=== PATIENT | male | born 1995 | race Caucasian/White ===

== ENCOUNTER 2021-12-15 12:15 | Emergency (ER) | payer BC, SELFPAY ==
[2021-12-15 12:23] VITALS: BP 110/72; PULSE 67; RESP 14; TEMP 36.3; O2SAT 96
--- NOTE | 2021-12-15 13:03 | W.ED.GENAD ---
Discharge Plan Disposition Patient Disposition: HOME Condition: Stable Discharge Details Clinical Impression: Post-op bleeding Primary Care Provider: [place],Local ED Provider: Latrell Denise Home Meds and New Rx's Prescriptions: No Action minoxidil [Hair Regrowth Treatment] 180 ML solution 1 ml Topical BID Qty: 180 3RF Label Comments: not using Rx Instructions: apply 1 ml to scalp BID finasteride 1 mg Tablet 1 mg PO DAILY Discharge Instructions Instructions: Postoperative Bleeding (ED) Additional Instructions: It is recommended that you have minimal activity today and just take sips of water for the next 6 to 8 hours. Bleeding then stops at that point you may resume normal recommendations from your dental provider. If you have any significant worsening of symptoms, hemorrhage, pain, fever or chills return immediately to the emergency department for reassessment Please follow-up with your dental provider on Friday for reassessment and any further recommendations as needed. Medical Decision Making Patient presenting to the emergency department for chief complaint of bleeding from dental extraction that occurred 3 days ago. He does state yesterday he had a significant increase of activity and after activity bleeding had started. Patient denies any severe pain or discomfort but she has chronic continued oozing at this point that has improved. Physical exam shows bleeding noted around postop site of tooth #16. Does not appear consistent with dry socket. Patient does not have significant pain, and no signs of infection. Gave patient reassurance and encouraged just sips of water and low activity for the next 6 to 8 hours to see if this helps with the bleeding. Patient did reach out to dentist but has not heard back from them so encourage patient to continue follow-up with dental provider or return for any new or significant worsening. HPI General Mode of arrival: ambulatory. Date/Time Provider Initiated Documentation: 12/15/21 12:45. Limitations to Documentation: no limitations. Information obtained by: patient and RN notes reviewed. History of Present Illness 26 year old M presents to the emergency department with the chief complaint of dental bleeding- post op, described as mild, with intensity rated at 3. Quality is described as aching, and is localized to the mouth and left. Patient reports no radiation. Patient started experiencing this hour(s) (10) and it has been constant (but improving). No relieving factors improve symptom(s), Other factors that worsen symptoms (increased activity) . Patient notes no other symptoms.. Patient did receive the following treatments prior to arrival, NSAID Related Data Home Medications Medication Instructions Recorded Confirmed minoxidil 5 % topical solution 1 ml topical BID #180 mL 01/19/18 (Hair Regrowth Treatment) finasteride 1 mg tablet 1 mg PO DAILY 12/15/21 12/15/21 Previous Rx's Medication Instructions Recorded minoxidil 5 % topical solution 1 ml topical BID #180 mL 01/19/18 (Hair Regrowth Treatment) Allergies Allergy/AdvReac Type Severity Reaction Status Date / Time No Known Allergies Allergy Unverified 12/15/21 12:28 General Stated Complaint: DentalOral JOHNATHAN: 4 Review of Systems Constitutional Constitutional: Denies chills, Denies fever(s) and Denies lethargy ENT Ears, Nose, Mouth, and Throat: Reports as per HPI, Denies change in voice, Reports dental pain (mild), Denies dysphagia, Denies dizziness, Denies throat swelling and Denies tongue swelling Cardiovascular Cardiovascular: Denies chest pain, Denies syncope and Denies dyspnea Respiratory Respiratory: Denies dyspnea, Denies stridor and Denies wheezing Gastrointestinal Gastrointestinal: Denies abdominal pain, Denies dysphagia, Denies nausea and Denies vomiting Integumentary/Breasts Skin/Breast: Denies rash Neurologic Neurologic: Denies dizziness and Denies syncope Allergic/Immunologic Allergic/Immunologic: Denies throat swelling, Denies tongue swelling and Denies wheezing PFSH All Active Problems Post-op bleeding (Acute) Social History Smoking/Tobacco Use Status: Current-Occasional Smoking risk assessment performed?: Yes Alcohol Intake: current Alcohol Intake frequency: a few times a month Substance use type: does not use Do you feel safe at home: Yes Do you feel safe in your relationship?: Yes Exam Const General: cooperative Orientation: alert, awake and oriented x3 Limitations: mental status not altered [facility] Head: normal to inspection, normocephalic and atraumatic Ears: hearing grossly normal bilaterally and normal mastoids bilaterally General nose exam: external nose normal Mouth: oropharynx normal, no drooling, no muffled voice, normal tongue and no trismus Teeth and gingiva: other (Postoperative changes and removal of 16 and 17) Throat: posterior oropharynx normal, tonsils normal and uvula midline Eyes General: appearance normal, both eyes and all related structures Pupils: PERRL Neck Neck: normal visual inspection, full ROM, no lymphadenopathy, no meningeal signs, trachea midline, supple, no anterior neck swelling and no midline deformity Resp Effort & Inspection: normal respiratory effort and able to speak in complete sentences Course Vital Signs Vital signs: Vital Signs Temperature 36.3 C L 12/15/21 12:23 Pulse 67 12/15/21 12:23 Respiratory Rate 14 12/15/21 12:23 Blood Pressure 110/72 12/15/21 12:23 Pulse Oximetry 96 12/15/21 12:23 Temperature 36.3 C L 12/15/21 12:23 Temperature Source Skin 12/15/21 12:23 Pulse 67 12/15/21 12:23 Respiratory Rate 14 12/15/21 12:23 Respiratory Effort 12/15/21 12:30 Blood Pressure 110/72 12/15/21 12:23 Blood Pressure Position Sitting 12/15/21 12:23 Pulse Oximetry 96 12/15/21 12:23 Oxygen Delivery Method Room Air 12/15/21 12:23 Oxygen Flow Rate 0 12/15/21 12:23 Pain Level 5 12/15/21 12:58 Comment 12/15/21 12:23 PAWSS Have you Been Recently Intoxicated or Drunk Within the Last 30 days?: No Have you Ever Experienced Previous Episodes of Alcohol Withdrawal?: No Have you ever Experienced Withdrawal Seizures?: No Have you ever Experienced Delirium Tremens(DT)s?: No Have you ever undergone Alcohol Rehabilitation Treatment (i.e, inpt ot outpatient treatment programs)?: No Have you ever Experienced Blackouts?: No Have you ever Combined Alcohol with other Downers within the last 90 days?: No Have you ever Combined Alcohol with any other Substance of Abuse during the last 90 days?: No Positive Blood Alcohol level on Presentation? [PCS.BAL]: No Evidence of Increased Autonomic Activity (i.e. HR>120, tremor, sweating, agitation, nausea)?: No Result: 0
== END 2021-12-15 13:10 | disposition home or self-care (01) ==
PROVIDERS: Emergency Provider Nurse Practitioner Family
DX: K91.841 Postprocedural hemorrhage of a digestive system organ or structure following other procedure (principal)
CPT/HCPCS: 99281

== ENCOUNTER 2024-11-17 01:27 | Outpatient (CLI) | payer OTHER, SELFPAY ==
--- NOTE | 2024-11-17 | DI.MRI_ITS ---
Exam(s) MR LOWER JOINT LT WO EXAM: MR LOWER JOINT LT WO CLINICAL HISTORY: FRACTURE, PATELLA, L KNEE PAIN, M25.562 ? OSTEOCHONDRAL DEFECT,PATELLAR TECHNIQUE: Multiplanar multisequence MRI of the knee was performed. COMPARISON: MR MR KNEE WO CONTRAST LEFT from 11/04/2023 CR XR KNEE LEFT 3 VIEWS from 10/19/2024 FINDINGS: EFFUSION: There is a moderate size knee joint effusion. Some mild synovial thickening cysts consisten t with synovitis noted.. There are no obvious loose intra-articular bodies. MARROW:There is no abnormal marrow signal is in the tibial plateau, fibular head and neck nor at the articular surfaces of the femoral condyles. There is some focal subcortical bone edema in the outer aspect of the medial femoral condyle posteriorly which was not evident on the outside MRI scan of Nov and is located just posterior to the MCL insertion at this level. There are no ominous osseo us lesions. PATELLOFEMORAL COMPARTMENT: There has been interval quadriceps tendon repair. Patella appears to be in satisfactory position. Vertical oblique fastener channels are evident in the patella. There is s ignificant thickening with some irregularity of the repaired quadriceps tendon and with some internal signal abnormality but no full-thickness tear. The patellar ligament appears unremarkable. The medi al and lateral patellar retinaculae appear intact. There is mild signal abnormality at the medial pa tellofemoral ligament attachment to the medial patella. No high-grade tear. More posteriorly the medial collateral ligament is intact There is now significant thinning of the entire retropatellar cartilage, significantly more so than p revious, this being mostly below the level of the equator of the posterior patella. A focal deep odilon ft in the central aspect of the retropatellar cartilage is again noted. There is mild intraosseous ed alexy throughout the patella. CRUCIATE LIGAMENTS: Appearance of the anterior cruciate ligament is similar to 1 year ago. There is some mild increased intrasubstance signal but no high-grade tear.The posterior cruciate ligament is i ntact. MEDIAL COMPARTMENT/MEDIAL MENISCUS: There are no tears of the medial meniscus evident.. There are no chondral defects, osteochondral defects, subarticular marrow edema, nor osteophytes evid ent. MEDIAL COLLATERAL LIGAMENT: Intact LATERAL COMPARTMENT/LATERAL MENISCUS: There is no evidence of lateral meniscal tear.There is mild thi nning of the articular cartilage over the main weight-bearing surface of the lateral femoral condyle but there are no prominent focal chondral defects, osteochondral defects, nor subarticular marrow tony ma. ILIOTIBIAL BAND: Intact LATERAL COLLATERAL LIGAMENT COMPLEX: The fibular collateral ligament is intact. The biceps femoris t endon is intact.Popliteus muscle and tendon are intact. IMPRESSION: 1. Compared to the prior MRI scan of November 2023 there has been interval repair of torn quadriceps ten don. However, the distal quadriceps tendon is thickened and exhibits some signal abnormality consist ent with partial intrasubstance tearing. There is no full-thickness tear. 2. There has been interval significant progression of chondromalacia of the retropatellar cartilage, including thinning and fissuring which is most prominent below the midline. There is mild edema thro ughout the patella but no evidence of patellar fracture. The patellar ligament appears intact-unrema rkable. 3. Medial and lateral patellar retinaculum appear intact as does the medial collateral ligament. 4. There are no meniscal tears nor collateral ligament tears nor cruciate ligament tears. There is s ome mild increased signal in the ACL but this is unchanged from 1 year ago and does not appear to rep resent significant tearing DATA REPOSITORY:
--- NOTE | 2024-11-17 17:42 | DI.VRAD_ITS ---
PROCEDURE INFORMATION: Exam: MR Left Lower Extremity Joint Without Contrast, Knee Exam date and time: 11/17/2024 2:27 PM Age: 29 years old Clinical indication: Other: Post quadriceps repair, anterior pain TECHNIQUE: Imaging protocol: Magnetic resonance imaging of the left lower extremity joint without contrast. Exam focused on the knee. COMPARISON: MR KNEE WO CONTRAST LEFT 11/04/2023 2:01 PM FINDINGS: Bones/joints: Moderate knee joint effusion with mild synovitis. Reactive marrow edema posteromedial femoral condyle. Periarticular cysts: Tiny popliteal cyst. Medial meniscus: Unremarkable. No tear. Lateral meniscus: Unremarkable. No tear. Anterior cruciate ligament: Unremarkable. No tear. Posterior cruciate ligament: Unremarkable. No tear. Medial capsule and supporting structures: Unremarkable. No tear. Lateral capsule and supporting structures: Unremarkable. No tear. Extensor mechanism of knee: Postoperative changes of distal quadriceps tendon repair with suture anchors in the patella. The anchor tracks extend to the subcortical surface of the lateral patellar facet and there is high-grade chondromalacia in the adjacent articular cartilage of the inferior patellar apex and lateral patellar facet. The distal quadriceps tendon is thickened and irregular suspicious for partial tearing. Reactive edema in the patella. Soft tissues: Proximal medial gastrocnemius enthesopathy. IMPRESSION: 1. Distal quadriceps tendon repair with findings suspicious for partial tearing of the distal quadriceps tendon 2. Reactive marrow edema in the patella 3. High-grade chondromalacia patella 4. Moderate knee joint effusion with mild synovitis 5. Other incidental findings as described Dictated and Authenticated by: Yamilex Nelson MD. Orderin Diogo Juarez MD
== END 2024-11-17 01:47 ==
PROVIDERS: Visit Provider Orthopaedic Surgery
DX: M25.562 Pain in left knee (principal); M22.42 Chondromalacia patellae, left knee
CPT/HCPCS: 73721